=== PATIENT | female | born 2000 | race African-American/Black ===

== ENCOUNTER 2024-06-17 10:39 | Emergency (ER) | payer OTHER ==
[2024-06-17 10:45] VITALS: BP 115/77; PULSE 81; RESP 18; TEMP 98.3; BMI 21.4
[2024-06-17 11:19] LABS: BASO % 0.9 % (0-2.0); EOS % 1.1 % (0-4.5); HEMATOCRIT 34.2 % (32.4-45.2); HEMOGLOBIN 10.9 GM/dL (10.7-15.3); LYMPH % 43.6 % (8-40); MCH 24.5 pg (25.7-33.7); MCHC 31.8 g/dl (32.0-36.0); MEAN CELL VOLUME 76.8 fl (80-96); MEAN PLT VOLUME 6.7 fl (7.5-11.1); NEUT % 47.4 % (42.8-82.8); PLATELET COUNT 368 10^3/uL (134-434); RBC 4.45 M/mm3 (3.60-5.2); RDW 16.2 % (11.6-15.6); WHITE BLOOD COUNT 4.5 K/mm3 (4.0-10.0)
[2024-06-17 11:41] LABS: POTASSIUM 4.1 mmol/L (3.5-5.1)
[2024-06-17 11:43] LABS: ALBUMIN 3.9 g/dl (3.4-5.0); BLOOD UREA NITROGEN 9.3 mg/dL (7-18); CALCIUM 9.5 mg/dL (8.5-10.1)
[2024-06-17 11:47] LABS: CREATININE 0.8 mg/dL (0.55-1.3)
[2024-06-17 11:48] LABS: BILIRUBIN,TOTAL 0.3 mg/dL (0.2-1); TOT PROT 7.4 g/dl (6.4-8.2)
== END 2024-06-17 13:44 | disposition home or self-care (01) ==
LOC: JERFT 10:39
DX: R53.83 Other fatigue (principal)
CPT/HCPCS: 36415; 80053; 85025; 99283-25